=== PATIENT | female | born 1975 | race Two or more races ===

== ENCOUNTER 2017-10-30 20:17 | Emergency (ER) | payer MEDICAID ==
[~2017-10-30] VITALS: Ht 162.6 cm; Wt 72.6 kg
[2017-10-30] MEDS ORDERED: LIDOCAINE 1% HCL (LOCAL ANESTH.) INJ 20ML MDV ONE (21:52)
[2017-10-30 22:03] VITALS: BP 95/65
[2017-10-30] MEDS ORDERED: LIDOCAINE 1% HCL (LOCAL ANESTH.) INJ 20ML MDV SC ONE (22:15)
[2017-10-30] MEDS ORDERED: NEOMYCIN-BACITRACIN-POLYM UNITDOSE PKG TOP OINT TOP ONE (22:45)
== END 2017-10-30 23:01 | disposition home or self-care (01) ==
LOC: ER 20:17
DX: L60.0 Ingrowing nail (principal); L08.9 Local infection of the skin and subcutaneous tissue, unspecified
CPT/HCPCS: 11730; 99284; J2001